=== PATIENT | female | born 1925 | race Caucasian/White ===

== ENCOUNTER → 2016-10-13 | Outpatient (CLI) | payer MEDICARE ==
[~2016-10-13] MED LIST: ACET1TAB25 PO; ASPI-557 PO; CALC600T12 PO; CHLO473M3 PO; CYAN10006 SQ; LORA0.5T86 PO; LOSA50TA52 PO; MAGN400C PO; ONDA4TAB4 PO; PANT40TA32 PO; RANI150T12 PO; SODI51CR6 MT
[2016-10-13 06:43] LABS: BASOPHILS % (AUTO) 0.6 % (0-2); EOSINOPHILS # (AUTO) 0.2 T/MM3 (0-0.5); EOSINOPHILS % (AUTO) 2.9 % (0-4); HCT - HEMATOCRIT 41.7 % (36-46); HGB - HEMOGLOBIN 13.4 GM/DL (12-16); IMMATURE GRANULOCYTE # (AUTO) 0.02 T/MM3 (0.00-0.03); IMMATURE GRANULOCYTE % (AUTO) 0.3 % (0.0-0.5); LYMPHOCYTES # (AUTO) 2.1 T/MM3 (1-4.8); LYMPHOCYTES % (AUTO) 30.5 % (23-45); MEAN CORPUSCULAR HGB 30.4 UUG (26-34); MEAN CORPUSCULAR HGB CONC(MCHC 32.1 GM/DL (31-37); MEAN CORPUSCULAR VOLUME 94.6 UM3 (80-100); MEAN PLATELET VOLUME 10.2 UM3 (9.4-12.4); MONOCYTES # (AUTO) 0.5 T/MM3 (0-0.8); NEUTROPHILS % (AUTO) 58.7 % (33-66); RED BLOOD COUNT 4.41 M/MM3 (4.00-5.20); WBC - WHITE BLOOD COUNT 6.8 T/MM3 (4.5-11.0)
[2016-10-13 06:52] LABS: ALBUMIN 3.3 G/DL (3.5-5.0); ALBUMIN/GLOBULIN RATIO 1.4 RATIO (1.1-2.2); ALKALINE PHOSPHATASE 55 U/L (38-126); ALT (SGPT) 40 U/L (9-52); ANION GAP 11 MEQ/L (5-15); AST (SGOT) 21 U/L (14-36); BUN/CREATININE RATIO 20 RATIO (6-26); CALCIUM 8.8 MG/DL (8.4-10.2); CHLORIDE 108 MEQ/L (98-107); CO2 - CARBON DIOXIDE 30 MEQ/L (22-30); CREATININE 0.7 MG/DL (0.7-1.2); GLOMERULAR FILTRATION RATE 79; GLUCOSE 95 MG/DL (65-110); POTASSIUM 3.7 MEQ/L (3.6-5); SODIUM 149 MEQ/L (134-144); TOTAL PROTEIN 5.6 G/DL (6.3-8.2)
== END ==
LOC: LABNH.PM 00:49
PROVIDERS: ATTEND Internal Medicine
DX: Z01.818 Encounter for other preprocedural examination (principal); D51.0 Vitamin B12 deficiency anemia due to intrinsic factor deficiency
CPT/HCPCS: 36415; 80053; 82607; 85025; P9604

== ENCOUNTER 2017-01-07 19:39 | Inpatient (IN) ==
--- NOTE | 2017-01-07 21:10 | Orthopedic Consult Note ---
Orthopedic Consultation HPI - Consultation Info Consult Date: 01/07/17 Consult Reason: fracture (Right subcapital femoral neck) - HPI Elements right hip Pain: throbbing, ache Onset: sudden Radiating: No Severity: mild, moderate Duration: 12-24 hours How Often Does Pain Occur: constant Previous Surgery: No Previous Injury: No Aggrevated by: standing, walking, getting out of a chair, twisting/pivoting X-ray Findings: sub-capital fracture Recommendation: other (Percutaneous screws. Will re-xray prior to surgery in the OR with possibility of endoprosthesis if fracture displaces in the interim) - History of Present Illness 89 yo female fell [facility]. Has been ambulating but complaining of right hip pain. Presented [place] [facility] [place]. Xrays show sub-capital femoral neck fracture on the right. Admitted to the hospitalist service with plan for surgery. Review of Systems - Constitutional Constitutional: Absent: chills, fatigue, fever(s) - EENT Eyes: Absent: change in vision Ears, nose, mouth, throat: Present: decreased hearing. Absent: headaches, lightheadedness - Cardiovascular Cardiovascular: Absent: chest pain, palpitations Vascular: Absent: pedal edema - Respiratory Respiratory: Absent: cough, dyspnea - Gastrointestinal Gastrointestinal: Absent: abdominal pain, change in bowel habits - Musculoskeletal Musculoskeletal: Present: as per HPI, abnormal gait, tenderness, joint pain. Absent: deformity - Integumentary/Breasts Integumentary: Absent: swelling, wounds - Neurological Neurological: Absent: frequent falls, numbness, tingling - Psychiatric Psychiatric: Absent: anxiety, depression - Endocrine Endocrine: Absent: palpitations - Hematologic/Lymphatic Hematologic/Lymphatic: Absent: easy bleeding, easy bruising [facility] Patient Stated Medical History Dementia Yes Transient Ischemic Attacks ( Yes TIA) Hearing Loss Yes Heart Murmur Yes Hypertension Yes Gastroesophageal Reflux Yes Disease Surgical History: T&A, TAHBSO, Bilateral Knee Surgery, Appendectomy Family History: Non-contributory - Social History Smoking status: Never smoker Substance use type: does not use Alcohol intake: never Housing: prison Medications Home Medications Medication Instructions Recorded Confirmed Type Pantoprazole Sodium 40 mg PO BID #0 08/16/01/07/17 History Cyanocobalamin (B-12) [Vit. B-12] 1,000 mcg SQ MONTHLY #0 09/25/15 01/07/17 History LORazepam [Ativan] 0.5 mg PO Q6H PRN #0 09/25/15 01/07/17 History Magnesium Oxide [Magnesium] 400 mg PO BID #0 09/25/15 01/07/17 History raNITIdine HCl [Zantac] 150 mg PO BID #0 09/25/15 01/07/17 History Aspirin [Aspir 81] 81 mg PO DAILY #0 01/01/16 01/07/17 History Calcium Carbonate [Calcium] 600 mg PO BID #0 01/01/16 01/07/17 History Chlorhexidine Gluconate [Periogard] 0.5 oz PO SS #0 01/01/16 01/07/17 History Sodium Fluoride [Denta 5000 Plus] 1 applic MT DAILY #0 01/01/16 01/07/17 History Atenolol [Tenormin] 25 mg PO BID 01/07/17 01/07/17 History Escitalopram Oxalate [Lexapro] 5 mg PO DAILY 01/07/17 01/07/17 History Lactase [Lactaid] 3,000 unit PO TID 01/07/17 01/07/17 History Losartan [Cozaar] 100 mg PO DAILY 01/07/17 01/07/17 History Sucralfate [Carafate] 1 gm PO HS 01/07/17 01/07/17 History Allergies Allergy/AdvReac Type Severity Reaction Status Date / Time No Known Allergies Allergy Unknown Verified 01/07/17 20:02 Orthopedic Exam Vital signs: Temperature 98.0 F 01/07/17 19:48 Pulse Rate 61 01/07/17 20:21 Respiratory Rate 18 01/07/17 20:21 Blood Pressure 168/87 H 01/07/17 20:21 Pulse Oximetry 91 01/07/17 20:21 Oxygen Delivery Method Room Air - Constitutional General Appearance: Present: alert, cooperative, looks stated age - Respiratory Exam Present: CTA bilaterally, non-labored - Cardiovascular Exam Present: Regular Rate/Rhythm, pedal pulses intact Capillary Refill: < 2-3 Seconds - Abdominal Exam Present: soft. Absent: tenderness, distended - Extremities Exam Present: pulses intact, normal capillary refill - Hip Exam right Hip Exam: Present: painful PROM, IR-limited, flexion-limited - Detailed Lower Extremity Exam Hip: Left normal inspection, Left full ROM, Right external rotation (mild), Right tenderness, Right decreased ROM, Right pain with external rotation, Right pain with internal rotation, Bilateral deformity (none), Bilateral shortening of the leg (normal leg lengths), Bilateral wound hip (negative) - Integumentary Exam Present: pink, warm, dry. Absent: lesions - Neurological Exam Present: intact to light touch, no deficits - Psychiatric Exam Present: alert, normal affect, attentive - Labs Result Diagrams: 01/07/17 21:11 01/07/17 21:11 - Diagnostic results Hip x-ray: image reviewed (Minimailly displaced right femoral neck fracture) Impression and Recommendation (1) Subcapital fracture of neck of right femur Current visit: Yes Qualifiers: Encounter type: initial encounter Fracture type: closed Qualified Code(s) : S72.011A - Unspecified intracapsular fracture of right femur, initial encounter for closed fracture Status: Acute Discussed the findings with the patient and daughter. She has been very stoic ambulating on her fracture and can't believe her hip is broken. Recommend placement of cannulated screws with the slight possibility of and endoprosthesis if the fracture has displaced significantly prior to surgery. Will evaluate with fluoroscopy in the OR. NPO until after surgery. The risks, benefits, alternatives, and potential complications were discussed including, but not limited to: bleeding, neurovascular inury, displacement of the fracture necessitating additional surgery (femoral head replacement), infection, risk of anesthesia, decreased mobility, and others. They wish to proceed. DVT prophylaxis mechanically until surgery. NWB. Bedrest. May have traction for pain if needed. Pain medication. Labs, CXR, UA, EKG pending. All questions were answered. Hospital Course Summary Disclaimer: The visit summary below is not to be considered part of the above Progress Note.
--- NOTE | 2017-01-07 21:13 | Emergency Department Report ---
Lower Extremity Injury HPI - General Chief Complaint: Extremity Injury, Lower Stated Complaint: Fall Source: patient, family Mode of arrival: ambulatory Limitations: altered mental status - History of Present Illness HPI Narrative: Patient is an 89-year-old female who resides at [facility]. She is brought into the ER tonight by her daughter following a fall this afternoon. Patient complains of some right hip pain however has been ambulatory since the fall. On exam, patient does demonstrate tenderness to her right hip but declines the need for pain medication. X-ray was done of bilateral hips and pelvis and does indicate an impacted femoral neck fracture. complaint: hip injury Onset (ago): hour(s) Injury: Right: hip Type of Injury: unknown (unwitnessed fall) Place: other (are seen home) Severity: mild Exacerbating factors: weight bearing, movement, palpation Context: fall Associated symptoms: ambulatory - Related Data Home Medications Medication Instructions Recorded Confirmed Pantoprazole Sodium 40 mg PO BID #0 08/16/13 01/07/17 Cyanocobalamin (B-12) [Vit. B-12] 1,000 mcg SQ MONTHLY #0 09/25/15 01/07/17 LORazepam [Ativan] 0.5 mg PO Q6H PRN #0 09/25/15 01/07/17 Magnesium Oxide [Magnesium] 400 mg PO BID #0 09/25/15 01/07/17 raNITIdine HCl [Zantac] 150 mg PO BID #0 09/25/15 01/07/17 Aspirin [Aspir 81] 81 mg PO DAILY #0 01/01/16 01/07/17 Calcium Carbonate [Calcium] 600 mg PO BID #0 01/01/16 01/07/17 Chlorhexidine Gluconate [Periogard] 0.5 oz PO SS #0 01/01/16 01/07/17 Sodium Fluoride [Denta 5000 Plus] 1 applic MT DAILY #0 01/01/16 01/07/17 Atenolol [Tenormin] 25 mg PO BID 01/07/17 01/07/17 Escitalopram Oxalate [Lexapro] 5 mg PO DAILY 01/07/17 01/07/17 Lactase [Lactaid] 3,000 unit PO TID 01/07/17 01/07/17 Losartan [Cozaar] 100 mg PO DAILY 01/07/17 01/07/17 Sucralfate [Carafate] 1 gm PO HS 01/07/17 01/07/17 Allergies Allergy/AdvReac Type Severity Reaction Status Date / Time No Known Allergies Allergy Unknown Verified 01/07/17 20:02 Review of Systems Constitutional: Reports: as per HPI. Denies: fever, chills, weakness ENT: Denies: ear pain, throat pain Cardiovascular: Denies: chest pain, palpitations, dyspnea on exertion Respiratory: Denies: cough, dyspnea, wheezes, hemoptysis Gastrointestinal: Denies: abdominal pain, nausea, vomiting, diarrhea Genitourinary: Denies: urgency, dysuria, frequency, hematuria, discharge Musculoskeletal: Reports: as per HPI, arthralgia. Denies: back pain, joint swelling Neurological: Reports: other (history of dementia). Denies: headache, weakness , numbness Hematological/Lymphatic: Denies: easy bleeding, easy bruising PFSH Patient Stated Medical History Dementia Yes Transient Ischemic Attacks ( Yes TIA) Hearing Loss Yes Heart Murmur Yes Hypertension Yes Gastroesophageal Reflux Yes Disease - Social History Smoking status: Never smoker Physical Exam - Limitations Limitations: language barrier, altered mental status - General General appearance: alert, in no apparent distress - Normal Exams: Head:: Normocephalic without trauma Eyes:: Pupils are PERRLA w/ EOMI, No scleral icterus, irritation, or foreign bodies noted ENMT:: No facial trauma, nasal exudates, pharyngeal erythema, or exudates are noted Neck:: Full range of motion, without adenopathy, JVD, bruits or thyromegaly Chest/Respirations:: Clear all coughlin, with good airflow, and symmetry bilaterally Cardiovascular:: Regular rate and rhythm, without murmur or gallop, Pulses 2+ all extremities, capillary refill, <2 seconds all extremities Abdomen:: Bowel sounds positive, soft, non-tender, non-distended, no hepatosplenomegaly, masses or bruits noted Musculoskeletal:: or deformity noted Integumentary:: No rashes, hives, or bruising noted, hair and nails, without abnormality Neurological:: Patient is alert, and oriented, cranial nerves, motor/sensory/ cerebellar, exams w/o gross deficits, to observation - Expanded Lower Extremity Exam Hip/Pelvis exam: Present: normal inspection, tenderness, other (patient has pain with palpation to right hip, no attempts to internally or externally rotate the hip). Absent: abrasion, laceration, deformity, erythema Upper leg exam: Present: normal inspection, tenderness. Absent: swelling Knee exam: Present: normal inspection, full ROM. Absent: tenderness, swelling Lower leg exam: Present: normal inspection, full ROM. Absent: tenderness, swelling Ankle exam: Present: normal inspection, full ROM. Absent: tenderness, swelling Course - Consultations Consultation #1: Dr. Bentley Time: 20:50 (accepts consult) Consultation #2: Hospitalist Time: 21:17 (contacted to admit patient ) Vital Signs Temperature 98.0 F 01/07/17 19:48 Pulse Rate 61 01/07/17 19:48 Respiratory Rate 18 01/07/17 19:48 Blood Pressure 178/92 H 01/07/17 19:48 Pulse Oximetry 90 01/07/17 19:48 Temperature 97.0 F 01/07/17 22:45 Pulse Rate 74 01/07/17 22:45 Respiratory Rate 20 01/07/17 22:55 Blood Pressure 151/91 H 01/07/17 22:55 Pulse Oximetry 93 01/07/17 22:55 Extremity Injury, Lower - MDM Narrative Medical decision making narrative: Patient has impacted femoral neck fracture. Will require admission/surgery. Dr Bentley will consult / hospitalist service to admit. Patient has dementia , limited historian. Patients daughter present and states agreement and understanding. - Lab Data Result diagrams: 01/07/17 21:11 01/07/17 21:11 Lab Results 01/07/17 01/07/17 01/07/17 Range/Units 21:11 21:11 21:12 WBC 10.3 (4.5-11.0) T/MM3 RBC 4.57 (4.00-5.20) M/MM3 Hgb 14.0 (12-16) GM/DL Hct 42.8 (36-46) % MCV 93.7 (80-100) UM3 MCH 30.6 (26-34) UUG MCHC 32.7 (31-37) GM/DL RDW Std Deviation 42.2 (36.9-50.2) FL Plt Count 232 (130-400) T/MM3 MPV 10.3 (9.4-12.4) UM3 Immature Gran % (Auto) 0.3 (0.0-0.5) % Neut % (Auto) 76.4 H (33-66) % Lymph % (Auto) 15.7 L (23-45) % [place] % (Auto) 5.0 (0-9.0) % Eos % (Auto) 2.3 (0-4) % Baso % (Auto) 0.3 (0-2) % Neut # 7.8 H (1.8-7.7) T/MM3 Lymph # 1.6 (1-4.8) T/MM3 [place] # 0.5 (0-0.8) T/MM3 Eos # 0.2 (0-0.5) T/MM3 Baso # 0.0 (0-0.2) T/MM3 Abs Immat Gran (auto) 0.03 (0.00-0.03) T/MM3 INR 0.94 L (0.99-1.21) Turbidity < 20 (0-20) Sodium 142 (134-144) MEQ/L Potassium 3.7 (3.6-5) MEQ/L Chloride 108 H (98-107) MEQ/L Carbon Dioxide 26 (22-30) MEQ/L Anion Gap 8 (5-15) MEQ/L BUN 12.0 (7-17) MG/DL Creatinine 0.7 (0.7-1.2) MG/DL GFR Calculation 79 BUN/Creatinine Ratio 17 (6-26) RATIO Glucose 108 (65-110) MG/DL Calculated Osmolality 274 (261-280) MOSM/KG Calcium 9.0 (8.4-10.2) MG/DL Total Bilirubin 0.70 (0.20-1.30) MG/DL Icterus Index < 2 (0-7) AST 29 (14-36) U/L ALT 39 (9-52) U/L Alkaline Phosphatase 75 (38-126) U/L Total Protein 6.4 (6.3-8.2) G/DL Albumin 4.0 (3.5-5.0) G/DL Globulin 2.4 (2.4-3.6) G/DL Albumin/Globulin Ratio 1.7 (1.1-2.2) RATIO Specimen Hemolysis 28 H (0-25) Ur Collection Type Urine Color (YELLOW) Urine Clarity Urine pH (5.0-8.0) Ur Specific [place] (1.015-1.025) Urine Protein (NEGATIVE) Urine Glucose (UA) (NEGATIVE) Urine Ketones (NEGATIVE) Urine Occult Blood (NEGATIVE) Urine Nitrate (NEGATIVE) Urine Bilirubin (NEGATIVE) Urine Urobilinogen (NORMAL) EU/DL Ur Leukocyte Esterase (NEGATIVE) Urinalysis Comment 01/07/17 Range/Units 22:07 WBC (4.5-11.0) T/MM3 RBC (4.00-5.20) M/MM3 Hgb (12-16) GM/DL Hct (36-46) % MCV (80-100) UM3 MCH (26-34) UUG MCHC (31-37) GM/DL RDW Std Deviation (36.9-50.2) FL Plt Count (130-400) T/MM3 MPV (9.4-12.4) UM3 Immature Gran % (Auto) (0.0-0.5) % Neut % (Auto) (33-66) % Lymph % (Auto) (23-45) % [place] % (Auto) (0-9.0) % Eos % (Auto) (0-4) % Baso % (Auto) (0-2) % Neut # (1.8-7.7) T/MM3 Lymph # (1-4.8) T/MM3 [place] # (0-0.8) T/MM3 Eos # (0-0.5) T/MM3 Baso # (0-0.2) T/MM3 Abs Immat Gran (auto) (0.00-0.03) T/MM3 INR (0.99-1.21) Turbidity (0-20) Sodium (134-144) MEQ/L Potassium (3.6-5) MEQ/L Chloride (98-107) MEQ/L Carbon Dioxide (22-30) MEQ/L Anion Gap (5-15) MEQ/L BUN (7-17) MG/DL Creatinine (0.7-1.2) MG/DL GFR Calculation BUN/Creatinine Ratio (6-26) RATIO Glucose (65-110) MG/DL Calculated Osmolality (261-280) MOSM/KG Calcium (8.4-10.2) MG/DL Total Bilirubin (0.20-1.30) MG/DL Icterus Index (0-7) AST (14-36) U/L ALT (9-52) U/L Alkaline Phosphatase (38-126) U/L Total Protein (6.3-8.2) G/DL Albumin (3.5-5.0) G/DL Globulin (2.4-3.6) G/DL Albumin/Globulin Ratio (1.1-2.2) RATIO Specimen Hemolysis (0-25) Ur Collection Type Urine, beltran Urine Color Yellow (YELLOW) Urine Clarity Clear Urine pH 7.0 (5.0-8.0) Ur Specific [place] 1.010 L (1.015-1.025) Urine Protein Negative (NEGATIVE) Urine Glucose (UA) Negative (NEGATIVE) Urine Ketones Negative (NEGATIVE) Urine Occult Blood Negative (NEGATIVE) Urine Nitrate Negative (NEGATIVE) Urine Bilirubin Negative (NEGATIVE) Urine Urobilinogen 0.2 (NORMAL) EU/DL Ur Leukocyte Esterase Negative (NEGATIVE) Urinalysis Comment Microscopic not ind. Disposition Clinical Impression: Femoral neck fracture Disposition: To [facility] [place] Acute Care Condition: Stable - Seen By: midlevel
[2017-01-07] MEDS: SALINE FLUSH 10ml SYRINGE IVF PRN ×2 (21:14→21:34)
[2017-01-07] MEDS ORDERED: MORPHINE SULFATE 2 MG SYRINGE IVP ONE (21:22)
[2017-01-07] MEDS ORDERED: ONDANSETRON 4 MG/2 ML INJECTION IVP ONE (21:23)
[2017-01-07] MEDS ORDERED: MORPHINE SULFATE 10 MG/ML VIAL IVP PRN (21:38)
[2017-01-07] MEDS ORDERED: ONDANSETRON 4 MG/2 ML INJECTION IVP PRN ×3 (21:38→23:51)
[2017-01-07] MEDS ORDERED: NS 1,000 ML IV SCH ×2 (21:45→23:44)
[2017-01-07] MEDS ORDERED: ACETAMINOPHEN 325 MG TABLET PO PRN (23:44)
[2017-01-07] MEDS ORDERED: SENNA + DOCUSATE TABLET PO PRN (23:44)
[2017-01-07] MEDS ORDERED: ALPRAZolam 0.25 MG TABLET PO PRN (23:44)
[2017-01-07] MEDS: HYDROCODONE/APAP 7.5 MG/325 MG TABLET PO PRN (23:56)
[2017-01-07] MEDS: LORazepam 0.5 MG TABLET PO PRN (23:56)
[2017-01-08 00:16] VITALS: BMI 23.4
--- NOTE | 2017-01-08 00:16 | History & Physical Report ---
<Shai Blake I - Last Filed: 01/08/17 00:16> History of Present Illness Date: 01/08/17 Chief complaint: R hip moore/fracture HPI: This is a pleasantly demented 89-year-old female patient who was [facility] this afternoon after she sustained an unwitnessed but presumed mechanical fall, fracturing her right hip. There was no reported syncope or prodrome. No reported chest pain. She apparently was ambulating back from the bathroom when she fell. She had had no recent illnesses. 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 She is admitted for further evaluation and comanagement with orthopedic surgery, with plans for surgical repair tomorrow morning. Review of Systems All systems: reviewed and no additional remarkable complaints except as stated - EENMT Eyes: Absent: change in vision - Cardiovascular Cardiovascular: Absent: chest pain, palpitations Vascular: Absent: pedal edema - Respiratory Respiratory: Absent: cough, dyspnea - Gastrointestinal Gastrointestinal: Absent: abdominal pain, change in bowel habits - Neurological Neurological: Present: memory loss ( Chronic short-term as above) - Hematologic/Lymphatic Hematologic/Lymphatic: Absent: easy bleeding, easy bruising PFSH Patient Stated Medical History Dementia Yes Transient Ischemic Attacks ( Yes TIA) Hearing Loss Yes Heart Murmur Yes Hypertension Yes Gastroesophageal Reflux Yes Disease Surgical History: T&A, TAHBSO, Bilateral Knee Surgery, Appendectomy - Social History Smoking status: Never smoker Current occupational exposures/hazards: No Current residence: Prison (she is in the penitentiary principally due to dementia) Medications Home Medications Medication Instructions Recorded Confirmed Type Pantoprazole Sodium 40 mg PO BID #0 08/16/13 01/07/17 History Cyanocobalamin (B-12) [Vit. B-12] 1,000 mcg SQ MONTHLY #0 09/25/15 01/07/17 History LORazepam [Ativan] 0.5 mg PO Q6H PRN #0 09/25/15 01/07/17 History Magnesium Oxide [Magnesium] 400 mg PO BID #0 09/25/15 01/07/17 History raNITIdine HCl [Zantac] 150 mg PO BID #0 09/25/15 01/07/17 History Aspirin [Aspir 81] 81 mg PO DAILY #0 01/01/16 01/07/17 History Calcium Carbonate [Calcium] 600 mg PO BID #0 01/01/16 01/07/17 History Chlorhexidine Gluconate [Periogard] 0.5 oz PO SS #0 01/01/16 01/07/17 History Sodium Fluoride [Denta 5000 Plus] 1 applic MT DAILY #0 01/01/16 01/07/17 History Atenolol [Tenormin] 25 mg PO BID 01/07/17 01/07/17 History Escitalopram Oxalate [Lexapro] 5 mg PO DAILY 01/07/17 01/07/17 History Lactase [Lactaid] 3,000 unit PO TID 01/07/17 01/07/17 History Losartan [Cozaar] 100 mg PO DAILY 01/07/17 01/07/17 History Sucralfate [Carafate] 1 gm PO HS 01/07/17 01/07/17 History Allergies Allergy/AdvReac Type Severity Reaction Status Date / Time No Known Allergies Allergy Unknown Verified 01/07/17 20:02 Exam Vital Signs: Temperature 98.0 F 01/07/17 19:48 Pulse Rate 61 01/07/17 20:21 Respiratory Rate 20 01/07/17 22:55 Blood Pressure 151/91 H 01/07/17 22:55 Pulse Oximetry 93 01/07/17 22:55 Oxygen Delivery Method Nasal Cannula Oxygen Flow Rate 1 Height: 5 ft 1 in Weight: 56.3 kg - Constitutional Present: mild distress, well nourished, well developed, agitated ( recently received pain medication, she is expressing some delirium) - Routine HEENT Exam Head: Present: normocephalic, atraumatic Eye: Present: EOMI, PERRL ENT: Present: mucous membranes moist - Routine Neck Exam Present: supple, full ROM - Routine Chest/Breast/Axilla Exam Chest wall: Absent: tenderness - Routine Respiratory Exam Present: CTA bilaterally. Absent: accessory muscle use, dyspnea - Routine Cardiovascular Exam Present: RRR, no murmur ( examination performed using telemedicine equipment with the assistance of the bedside nurse) - Routine Abdominal Exam Present: soft, normoactive bowel sounds, non distended, non tender - Routine Extremities Exam Present: no edema, normal capillary refill - Routine Neurological Exam Present: alert, moving all extremities. Absent: oriented X3, sensory deficit, motor deficit - Routine Psychiatric Exam Present: cooperative, agitated ( she is slightly agitated, and wanting to climb out of bed, but is able to be oriented by the bedside nurse and easily redirected) Results - Labs CBC & Chem 7: 01/07/17 21:11 01/07/17 21:11 - Impressions X-ray of the right hip revealed an impacted femoral neck fracture by report Assessment and Plan (1) Subcapital fracture of neck of right femur Status: Acute 01/08/17 00:22 she is nothing by mouth at this time. Dr. Bentley is aware of her situation , and plans operative repair in the morning. I see no medical contraindication to proceeding at his earliest convenience. We will be happy to follow along during her hospital course. Her home medications for essential hypertension, dyslipidemia, gastroesophageal reflux disease, and cerebrovascular disease are ordered to continue. Pain management, and DVT prophylaxis, will be per orthopedics recommendations unless otherwise requested. DVT Prophylaxis: SCD's, YASIR Hose, other ( Postop DVT prophylaxis per orthopedics unless otherwise requested) Resuscitation Status: Do Not Resuscitate (per the patient's daughter at the bedside) Hospital Course Summary Disclaimer: The visit summary below is not to be considered part of the above Progress Note. <Myrna Retana - Last Filed: 01/08/17 10:10> History of Present Illness Date: 01/08/17 [facility] Patient Stated Medical History Dementia Yes Transient Ischemic Attacks ( Yes TIA) Cataracts Yes Hearing Loss Yes Heart Murmur Yes Hypertension Yes Gastroesophageal Reflux Yes Disease Hx Incontinence Yes Anemia Yes Shingles Yes: possibly -several years ago Depression Yes Exam Vital Signs: Temperature 97.3 F 01/08/17 07:45 Pulse Rate 79 01/08/17 08:18 Respiratory Rate 20 01/08/17 08:56 Blood Pressure 147/82 H 01/08/17 07:45 Pulse Oximetry 99 01/08/17 08:56 Oxygen Delivery Method Room Air Oxygen Flow Rate 2 Height: 1.55 m Weight: 57 kg Results - Labs CBC & Chem 7: 01/08/17 04:38 01/08/17 04:38 Assessment and Plan (1) Subcapital fracture of neck of right femur Current visit: Yes Status: Acute Assessment and Plan: Dr. Blake's note reviewed. Mrs. Arzola interviewed and examined. Patient's daughter/DPOA Mikayla Navarro provided majority of the history. CC: Hip fracture/pain HPI: Mrs. Arzola is an 89-year-old female who resides at [facility]. She was reported to have an unwitnessed fall at the facility yesterday. She was able to ambulate after the fall but complained of pain and subsequently presented to the emergency room for evaluation. Initial evaluation demonstrated tenderness over the right hip and x-rays revealed femoral neck fracture. The patient is unable to provide any further history due to dementia. Her daughter is unaware of any recent illness and reports that her mother has no residual physical deficits from a stroke 14 years ago and has not complained of chest pain nor does she have a history of coronary disease. Surgical repair of the hip is anticipated this morning. Currently the patient denies pain. 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 Daughter believes patient has had both knees replaced and she is undergone bilateral cataract surgery. Family history is largely unknown as family remains in [place] but her daughter believes one sister had congenital heart disease and one sister had breast cancer. Patient has no history of tobacco, alcohol or illicit drug use. She has a DO NOT RESUSCITATE order and her daughter, Mikayla Navarro, is her DPOA ROS: 10 point review is unobtainable due to the patient's dementia/sedation EXAM: General-NAD, moving right leg slightly without apparent discomfort, minimal speech but occasionally responds to a question, slightly hard of hearing. 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 Skin-without rash or ulcerations on exposed skin surfaces Neuro-sensation intact 4 extremities, no drift upper extremities, hand inspector +4 bilaterally, dorsiflexion/plantarflexion intact, spontaneously moving both legs more proximally but power not assessed Psych-confused, pleasant DATA: X-rays of pelvis and bilateral hips reviewed-impacted right femoral neck fracture present Chest x-ray reviewed by myself-NAD EKG reviewed by myself-sinus rhythm, minor LAD, poor R-wave progression, possible old inferior VT, no acute ST-T wave changes Laboratory data unremarkable other than minor drop in potassium overnight with potassium 3.3 this morning. A/P: Right femoral neck fracture Hypokalemia Dementia Hypertension GERD/history peptic ulcer disease Remote history CVA Dr. Bentley consulted for orthopedic recommendations/surgical intervention- stabilization of right femoral neck fracture. Anticipate surgery later today. DVT prophylaxis initiated with SCDs overnight, chemical prophylaxis postoperatively. PT/OT consults postoperatively. Postoperative course discussed with patient's daughter. Incentive spirometry ordered. Potassium replacement initiated IV. Hemodynamically stable, blood pressure medications resumed per home regimen. Bowel regimen ordered for anticipated postop constipation. Patient on triple therapy for peptic disease-will discuss further with daughter to determine if can de-escalate. Medically stable for surgery as planned. X-ray/EKG reviewed by myself, old records reviewed, supple mental history provided by nursing and patient's daughter, laboratory data reviewed. High-risk medications in use, surgery today. Hospital Course Summary Disclaimer: The visit summary below is not to be considered part of the above Progress Note. Hospital Course: 01/08/17 10:09 Admitted with right femoral neck fracture after fall at [facility]. Dr. Bentley consulted, surgery planned for today. Mild hypokalemia-replaced IV.
[2017-01-08] MEDS: NS 1,000 ML IV SCH ×3 (01:06→13:42)
[2017-01-08] MEDS: LACTAID FAST TABLET PO SCH ×3 (07:25→17:53)
--- NOTE | 2017-01-08 07:59 | XRay Report ---
Indication: PRE OP PROCEDURE: XR chest 1V: Encounter: Initial Comparison: November 16, 2008 FINDINGS: The lungs are clear. There is no abnormal airspace opacity, pleural effusion or pneumothorax identified. Eventration of the right hemidiaphragm. The heart size, pulmonary vasculature and mediastinum are within normal limits. No significant skeletal abnormality is seen. IMPRESSION: No acute cardiopulmonary abnormality. .
--- NOTE | 2017-01-08 08:03 | XRay Report ---
Indication: fall pain to hips; dementia PROCEDURE: XR pelvis w/ 2 view BI hip: Encounter: Initial Comparison: None Findings: Slightly impacted fracture of the subcapital right femoral neck. No additional acute fracture or dislocation seen. Degenerative change in the lower lumbar spine. Bony demineralization limiting detection of nondisplaced fractures. Impression: Closed posttraumatic right femoral neck fracture. .
[2017-01-08] MEDS: MAGNESIUM OXIDE 400 MG TABLET PO SCH ×2 (08:12→22:20)
[2017-01-08] MEDS: [UNRECOGNIZED DRUG - OTHER] PO SCH (08:12)
[2017-01-08] MEDS: ASPIRIN *EC* 325 MG TABLET PO SCH ×2 (08:12→22:18)
[2017-01-08] MEDS: SODIUM FLUORIDE PO SCH (08:12)
[2017-01-08] MEDS: CALCIUM CARBONATE 600 MG TABLET PO SCH ×2 (08:12→22:20)
[2017-01-08] MEDS: RANITIDINE 150 MG TABLET PO SCH ×2 (08:13→22:18)
[2017-01-08] MEDS: ESCITALOPRAM 10 MG TABLET PO SCH (08:42)
[2017-01-08] MEDS: ATENOLOL 25 MG TABLET PO SCH ×2 (08:43→22:16)
[2017-01-08] MEDS: LOSARTAN 100 MG TABLET PO SCH (08:43)
[2017-01-08] MEDS ORDERED: ASPIRIN *EC* 81 MG TABLET PO SCH (09:00)
[2017-01-08] MEDS ORDERED: PANTOPRAZOLE 40 MG TABLET PO SCH (09:00)
[2017-01-08] MEDS ORDERED: CEFAZOLIN 1 G INJECTION IVP ONE ×2 (10:45)
--- NOTE | 2017-01-08 11:00 | Anesthesia Preoperative Report ---
Anesthesia Preoperative Record - Date and Time Date: 01/08/17 Preoperative Diagnosis: Hip Fracture Proposed Procedure: Hip TFN NPO Since Date: 01/08/17 NPO Since Time: 08:30 Allergies/Adverse Reactions: Allergies Allergy/AdvReac Type Severity Reaction Status Date / Time No Known Allergies Allergy Unknown Verified 01/07/17 20:02 - Vital Signs Vital Signs: Temperature 98.0 F 01/08/17 10:30 Pulse Rate 74 01/08/17 10:30 Respiratory Rate 18 01/08/17 10:30 Blood Pressure 221/103 H 01/08/17 10:50 Pulse Oximetry 89 L 01/08/17 10:30 Oxygen Delivery Method Room Air Oxygen Flow Rate 2 Height and Weight: Height 1.55 m Weight 57 kg Body Mass Index 23.4 - Medications Inpatient Medications: Current Medications Acetaminophen (Tylenol) 650 mg PO Q4H PRN PRN Reason: Pain Acetaminophen/Hydrocodone Bitart ([place] 7.5/325) 1 - 2 tab PO Q6H PRN PRN Reason: Pain Last Admin: 01/07/17 23:56 Dose: 2 tab Alprazolam (Xanax) 0.25 mg PO Q8H PRN PRN Reason: Anxiety Aspirin (Ecotrin) 325 mg PO BID [facility] Last Admin: 01/08/17 08:12 Dose: Not Given Atenolol (Tenormin) 25 mg PO BID [facility] Last Admin: 01/08/17 08:43 Dose: 25 mg Calcium Carbonate (Caltrate) 600 mg PO BID [facility] Last Admin: 01/08/17 08:12 Dose: Not Given Escitalopram Oxalate (Lexapro) 5 mg PO DAILY [facility] Last Admin: 01/08/17 08:42 Dose: 5 mg Sodium Chloride (Normal Saline) 1,000 mls @ 75 mls/hr IV .[id number] [facility] Last Infusion: 01/08/17 04:57 Dose: 75 mls/hr Lidocaine HCl 10 mg/ Potassium Chloride 10 meq/ Sodium Chloride 100 mls @ 100 mls/hr IV .Q1H [facility] Stop: 01/08/17 11:44 Lactase (Lactaid Fast Act) 1 tab PO WM [facility] Last Admin: 01/08/17 07:25 Dose: Not Given Lorazepam (Ativan) 0.5 mg PO Q6H PRN PRN Reason: ANX Last Admin: 01/07/17 23:56 Dose: 0.5 mg Losartan Potassium (Cozaar) 100 mg PO DAILY [facility] Last Admin: 01/08/17 08:43 Dose: 100 mg Magnesium Hydroxide (Mom) 30 ml PO DAILY PRN PRN Reason: Constipation Magnesium Oxide (Magox) 400 mg PO BID [facility] Last Admin: 01/08/17 08:12 Dose: Not Given Morphine Sulfate (Morphine Sulfate Inj) 1 - 5 mg IVP Q1H PRN PRN Reason: Pain (Sodium Fluoride [ Denta 5000 Plus] 1 Applic) 1 applic PO DAILY [facility] Last Admin: 01/08/17 08:12 Dose: Not Given [Periogard] 0.5 Oz) 0.5 oz PO DAILY [facility] Last Admin: 01/08/17 08:12 Dose: Not Given Ondansetron HCl (Zofran) 4 mg IVP Q6H PRN PRN Reason: Nausea &/or vomiting Pantoprazole Sodium (Protonix Tab) 40 mg PO ACB [facility] Ranitidine HCl (Zantac) 150 mg PO BID [facility] Last Admin: 01/08/17 08:13 Dose: Not Given Senna/Docusate Sodium (Senna Plus Tablet) 2 tab PO BID [facility] Sucralfate (Carafate) 1 gm PO [facility] Home Medications: Home Medications Medication Instructions Recorded Confirmed Type Pantoprazole Sodium 40 mg PO BID #0 08/16/13 01/07/17 History Cyanocobalamin (B-12) [Vit. B-12] 1,000 mcg SQ MONTHLY #0 09/25/15 01/07/17 History LORazepam [Ativan] 0.5 mg PO Q6H PRN #0 09/25/15 01/07/17 History Magnesium Oxide [Magnesium] 400 mg PO BID #0 09/25/15 01/07/17 History raNITIdine HCl [Zantac] 150 mg PO BID #0 09/25/15 01/07/17 History Aspirin [Aspir 81] 81 mg PO DAILY #0 01/01/16 01/07/17 History Calcium Carbonate [Calcium] 600 mg PO BID #0 01/01/16 01/07/17 History Chlorhexidine Gluconate [Periogard] 0.5 oz PO SS #0 01/01/16 01/07/17 History Sodium Fluoride [Denta 5000 Plus] 1 applic MT DAILY #0 01/01/16 01/07/17 History Atenolol [Tenormin] 25 mg PO BID 01/07/17 01/07/17 History Escitalopram Oxalate [Lexapro] 5 mg PO DAILY 01/07/17 01/07/17 History Lactase [Lactaid] 3,000 unit PO TID 01/07/17 01/07/17 History Losartan [Cozaar] 100 mg PO DAILY 01/07/17 01/07/17 History Sucralfate [Carafate] 1 gm PO HS 01/07/17 01/07/17 History - Medical History Cardiovascular: Reports: Congestive Heart Failure, Heart Murmur, Hypertension Gastrointestional: Reports: Gastroesophageal Reflux Disease Neuro/Musculoskeletal: Reports: Other - Surgical History Musculoskeletal Surgery/Tx: Reports: Total Knee Replacement Reproductive Surgery/Treatment: Reports: Hysterectomy - Social History Smoking Status: Never smoker Hx Chewing Tobacco Use: No Second Hand Exposure: No Substance Use Type: does not use Alcohol Intake Frequency: does not drink - Pertinent Findings Laboratory: CBC and BMP 01/08/17 04:38 01/08/17 04:38 BMP 01/08/17 04:38 Sodium 139 Potassium 3.3 L Chloride 104 Carbon Dioxide 28 BUN 10.0 Creatinine 0.6 L Glucose 118 H Calcium 8.5 EKG Rhythm: Normal Sinus Rhythm - Physical Exam Respiratory Exam: Present: lungs clear Cardiovascular Exam: Present: regular rate and rhythm, systolic murmur - Airway Assessment Mallampati Score: III TMD: 3 Fingerbreadths Neck Extension: fair Teeth: chipped teeth/crowns Overall Assessment: may be difficult mask vent, may be difficult intubation - ASA ASA Score: 3 - Plan Anesthesia: General Inhalation Gases - Discussion Discussion: Discussed risks/options/alternatives of anesthesia and questions answered. Patient consents. Nursing pain assessment noted. Present for Discussion: family member Attestation Statement: Prior to the delivery of any anesthetic medication, I examined the patient, developed the plan, obtained the patient's consent and discussed the risk and benefits of the procedure with the patient/guardian. - Additional Information Seen by Anesthesia: Yes
[2017-01-08] MEDS: LIDOCAINE 1% 2ml INJ 10 MG, POTASSIUM CHLORIDE INJ 10 MEQ in NS 100 ML IV SCH ×3 (11:05→13:23)
[2017-01-08] MEDS ORDERED: FentaNYL 100 MCG/2 ML INJECTION ONE (11:17)
[2017-01-08] MEDS ORDERED: ROCURONIUM 50 MG/5 ML INJECTION IVP ONE (11:27)
[2017-01-08] MEDS ORDERED: BUPIVACAINE 0.25% (2.5mg/ml) PF 30ml INJECTION ID ONE (11:50)
[2017-01-08] MEDS ORDERED: BUPIVACAINE 0.25% (2.5mg/ml) PF 30ml INJECTION ONE (11:52)
[2017-01-08] MEDS ORDERED: HYDRALAZINE 20 MG/ML INJECTION ONE (12:01)
[2017-01-08] MEDS ORDERED: SUGAMMADEX 200mg/2ml INJECTION IVP ONE (12:27)
--- NOTE | 2017-01-08 12:53 | Post Procedure Note ---
Date of Procedure: 01/08/17 Orthopedic Surgeon: Sheree Orthopedic Assisting Surgeon: Liu Meza Anesthesia: General Inhalation Gases Procedure: Procedures Operation Date: 01/08/17 11:30 Actual Procedures p Open Red Int Fix Hip W/Cannulated Screws(Right) - Giovany Bentley MD Condition: Stable Disposition: PACU
[2017-01-08] MEDS: MORPHINE SULFATE 4 MG SYRINGE IVP PRN (13:40)
--- NOTE | 2017-01-08 14:34 | Anesthesia Postoperative Note ---
- Date and Time Date: 01/08/17 Time: 14:33 - Status Patient Participated in Evaluation: Patient Participated in Person Vital Signs: Temperature 97.6 F 01/08/17 13:12 Pulse Rate 83 01/08/17 14:10 Respiratory Rate 01/08/17 13:10 Blood Pressure 180/84 H 01/08/17 14:10 Pulse Oximetry 94 01/08/17 14:10 Oxygen Delivery Method Nasal Cannula Oxygen Flow Rate 2 Respiratory Function: Airway Patent Cardiovascular Function: Regular Pulse EKG Rhythm: Normal Sinus Rhythm Mental Status: Alert and Oriented (return to preop LOC) Pain Intensity: 0 Hydration: IV Infusing Complications During Recover: None Apparent - Follow-Up Instructions Instructions: Per Surgeon
--- NOTE | 2017-01-08 14:58 | Remote Fluorsocopy Report ---
Indication: RT HIP CANNULATED SCREWS PROCEDURE: RF hip RT 2 view: Encounter: Initial Comparison: Pelvis radiographs from yesterday Findings: Four fluoroscopic spot images are submitted for interpretation. Images show internal fixation of the right femoral neck fracture with placement of three partially threaded cannulated screws across the femoral head and neck. Stable alignment. Impression: Fluoroscopy as above. Fluoroscopy time is 175.4 seconds. Fluoroscopy dose is 2910 mRad. .
--- NOTE | 2017-01-08 16:11 | Operative Note ---
DATE OF SURGERY 01/07/2017 PREOPERATIVE DIAGNOSIS Closed right subcapital femoral fracture, mild valgus impaction. POSTOPERATIVE DIAGNOSIS Closed right subcapital femoral fracture, mild valgus impaction. PROCEDURE Right subcapital femoral neck fracture, closed reduction and placement of cannulated screws. SURGEON Giovany Bentley MD TAIL EDGER Liu Meza PA-C ANESTHESIA General. FLUIDS Please refer to Anesthesia chart. EBL Minimal. COMPLICATIONS None. CONDITION Stable in recovery room. DESCRIPTION OF PROCEDURE The patient was identified in the preoperative holding area. The operative extremity was identified and appropriately marked. Risks, benefits, alternatives and potential complications were discussed and informed consent was obtained. The patient was taken to the operating theatre and placed supine on the fracture table. When she was moved to the fracture table appropriate cardiorespiratory monitors were applied and general anesthesia was induced. Fluoroscopy was brought in to confirm position of the fracture. It was noted to remain in slight valgus alignment. Gentle reduction was performed and we were able to obtain slightly better reduction by maintaining slight lateral traction on the proximal femur. The legs were placed in well-padded traction boots and positioned maintained. Repeat fluoroscopy again showed good position. Right lower extremity was then sterilely prepped and draped in the usual fashion. Surgical time-out was performed, confirmed with myself, the maintainer operator and circulating nurse. Preoperative antibiotics were given. Fluoroscopy was brought in and surgical landmarks were delineated on the skin as well as the angle of approach for this fracture. A 3-cm incision was created laterally just above the level of the lesser trochanter. First, a guidewire was advanced inferiorly along the inferior calcar region of the femoral neck, placed in the subchondral region of the head. This position was confirmed in the AP and lateral planes. The Synthes Ang Gun type guide was then utilized to place two more proximal anterior and posterior screws. Guide pins were then used to measure screw depth. The lateral cortex was drilled with the cannulated drill. The most inferior screw was then placed with a washer along the calcar region , position confirmed in the AP and lateral planes. Short threads were used which just barely passed the fracture line. This was not tightened all the way. The two additional screws were then placed and advanced. It was felt that the most posterior screw was slightly long, we were noticing prior to full feeding, so this was backed out and exchanged for a 5-mm shorter screw. This screw fit much better without penetration of the subchondral bone on the lateral view. Screws were then sequentially tightened with a hand line haul truck driver. Repeat final x-rays showed good position of the screws. Dynamic fluoroscopy was used to visualize the fracture, noting good stability with gentle range of motion of the hip. The guide pins had been removed. The wound was copiously irrigated. A standard layered closure was performed. Sterile dressings were applied. The patient was removed from traction and placed back into her hospital bed. She was awakened from anesthesia and taken to the recovery room in stable and satisfactory condition. JUAN M
[2017-01-08] MEDS: CEFAZOLIN 1 G in NS 100 ML IV SCH (17:03)
[2017-01-08] MEDS: HYDROCODONE/APAP 7.5 MG/325 MG TABLET PO PRN (22:15)
[2017-01-08] MEDS: LORazepam 0.5 MG TABLET PO PRN (22:15)
[2017-01-08] MEDS: SENNA + DOCUSATE TABLET PO SCH (22:18)
[2017-01-08] MEDS: SUCRALFATE 1 GM TABLET PO SCH (22:20)
[2017-01-09] MEDS: CEFAZOLIN 1 G in NS 100 ML IV SCH (01:05)
[2017-01-09] MEDS: NS 1,000 ML IV SCH (05:55)
[2017-01-09] MEDS: PANTOPRAZOLE 40 MG TABLET PO SCH (06:00)
[2017-01-09] MEDS: HYDROCODONE/APAP 7.5 MG/325 MG TABLET PO PRN ×2 (06:07→08:32)
[2017-01-09] MEDS: LORazepam 0.5 MG TABLET PO PRN ×2 (07:35→15:44)
[2017-01-09] MEDS: LACTAID FAST TABLET PO SCH ×3 (08:53→18:15)
[2017-01-09] MEDS: ESCITALOPRAM 10 MG TABLET PO SCH (09:05)
[2017-01-09] MEDS: RANITIDINE 150 MG TABLET PO SCH ×2 (09:05→20:56)
[2017-01-09] MEDS: SENNA + DOCUSATE TABLET PO SCH ×2 (09:05→20:55)
[2017-01-09] MEDS: ASPIRIN *EC* 325 MG TABLET PO SCH (09:05)
[2017-01-09] MEDS: CALCIUM CARBONATE 600 MG TABLET PO SCH ×2 (09:06→20:55)
[2017-01-09] MEDS: ATENOLOL 25 MG TABLET PO SCH ×2 (09:06→20:56)
[2017-01-09] MEDS: MAGNESIUM OXIDE 400 MG TABLET PO SCH (09:06)
[2017-01-09] MEDS: LOSARTAN 100 MG TABLET PO SCH (09:06)
[2017-01-09] MEDS: [UNRECOGNIZED DRUG - OTHER] PO SCH (09:22)
[2017-01-09] MEDS: SODIUM FLUORIDE PO SCH (09:23)
[2017-01-09] MEDS: LIDOCAINE 1% 2ml INJ 10 MG, POTASSIUM CHLORIDE INJ 10 MEQ in NS 100 ML IV SCH ×4 (10:16→13:32)
--- NOTE | 2017-01-09 14:42 | Orthopedic Progress Note ---
Date: Subjective/Severity of Illness: Liza is pleasantly confused. She is sleeping comfortably as I enter the room. She awakens easily. No complaints. Orthopedic Objective PO Vital signs: Temperature 96.1 F L 01/09/17 11:15 Pulse Rate 63 01/09/17 11:15 Respiratory Rate 16 01/09/17 11:15 Blood Pressure 121/68 01/09/17 11:15 Pulse Oximetry 94 01/09/17 11:28 Oxygen Delivery Method Nasal Cannula Oxygen Flow Rate 2 Height and Weight: Height 5 ft 1 in Weight 125 lb 3.561 oz Body Mass Index 23.4 - Constitutional General Appearance: Present: alert, cooperative, looks stated age - Respiratory Exam Present: non-labored - Cardiovascular Exam Present: Regular Rate/Rhythm, pedal pulses intact - Abdominal Exam Present: soft. Absent: tenderness, distended - Extremities Exam Extremities: Present: pulses intact - Integumentary Exam Present: pink, warm, dry. Absent: lesions - Neurological Exam Present: intact to light touch, no deficits - Psychiatric Exam Present: alert, normal affect, attentive - Labs Result Diagrams: 01/09/17 04:14 01/09/17 04:14 Abnormal lab results 01/09/17 01/09/17 Range/Units 04:14 04:14 Neut % (Auto) 81.0 H (33-66) % Lymph % (Auto) 11.3 L (23-45) % Abs Immat Gran (auto) 0.04 H (0.00-0.03) T/MM3 Potassium 3.3 L (3.6-5) MEQ/L Chloride 110 H (98-107) MEQ/L Creatinine 0.6 L (0.7-1.2) MG/DL Calcium 8.2 L (8.4-10.2) MG/DL Magnesium 2.5 H (1.6-2.3) MG/DL H & H 01/08/17 01/09/17 Range/Units 04:38 04:14 Hgb 13.5 12.1 (12-16) GM/DL Hct 41.8 37.7 (36-46) % Orthopedic Assessment and Plan (1) Subcapital fracture of neck of right femur Status: Acute Qualifiers: Encounter type: initial encounter Fracture type: closed Qualified Code(s) : S72.011A - Unspecified intracapsular fracture of right femur, initial encounter for closed fracture Assessment and Plan: S/P cannulated screw fixation by Dr. Bentley on 01/08/17 DVT prevention 50% weight bearing with walker on right leg case management for discharge planning. Hospital Course Summary Disclaimer: The visit summary below is not to be considered part of the above Progress Note. Hospital Course: 01/08/17 10:09 Admitted with right femoral neck fracture after fall at [facility]. Dr. Bentley consulted, surgery planned for today. Mild hypokalemia-replaced IV.
--- NOTE | 2017-01-09 15:17 | Progress Note ---
Subjective: Mrs. Arzola was up in a chair when seen. She was able to pivot transfer with assistance. Patient reports some hip discomfort but denied nausea. Nursing reports that urine output was borderline earlier in the day but has improved progressively. The patient's appetite has been borderline and she requires encouragement to eat. Low-grade hypoxia has been present requiring continuation of oxygen. Patient was unable to provide any history. Objective Vital signs: Temperature 96.1 F L 01/09/17 11:15 Pulse Rate 63 01/09/17 11:15 Respiratory Rate 16 01/09/17 11:15 Blood Pressure 121/68 01/09/17 11:15 Pulse Oximetry 94 01/09/17 11:28 Oxygen Delivery Method Nasal Cannula Oxygen Flow Rate 2 EXAM General-patient is drowsy and responded to questions only occasionally HEENT-mild conjunctival injection, sclera anicteric Lungs-respirations nonlabored with diminished airflow but clear breath sounds Cardiac-regular rhythm, S1 and S2 Abd-soft, nontender, diminished bowel sounds Ext-without edema Neuro-moving upper extremities spontaneously, dorsiflexion/plantarflexion intact bilaterally Psych-calm, cooperative - Weight: 56.8 kg Results - Labs CBC & Chem 7: 01/09/17 04:14 01/09/17 04:14 Assessment and Plan (1) Subcapital fracture of neck of right femur Current visit: Yes Status: Acute DVT Prophylaxis: SCD's Resuscitation Status: Do Not Resuscitate Assessment and Plan: Impression: Right femoral neck fracture-s/p cannulated screw fixation 01/08/17, Dr. Bentley Hypokalemia Dementia Hypertension GERD/history peptic ulcer disease Remote history CVA ORIF yesterday with cannulated screw fixation. 50% weightbearing RLE per orthopedic recommendations. On aspirin 325 twice a day for DVT prophylaxis in conjunction with SCDs. long term anticipated discharge. Reese catheter being removed today. Continue bowel regimen. Potassium replaced further IV. Blood pressure stable. No behavioral problems reported per nursing. Discussed with orthopedics, nursing, and case management. Sepsis Assessment - Evaluation Sepsis screening result: No Definite Risk Hospital Course Summary Disclaimer: The visit summary below is not to be considered part of the above Progress Note. Hospital Course: 01/08/17 10:09 Admitted with right femoral neck fracture after fall at [facility]. Dr. Bentley consulted, surgery planned for today. Mild hypokalemia-replaced IV. 01/09/17 15:27 Underwent surgical stabilization with cannulated screw fixation yesterday. 50% weightbearing RLE. long term anticipated. Reese catheter removed. Continues to require potassium supplementation. Blood pressure stable.
[2017-01-09] MEDS ORDERED: CALCIUM CARBONATE Chewable 750mg TABLET PO PRN (18:59)
[2017-01-09] MEDS: SUCRALFATE 1 GM TABLET PO SCH (21:00)
[2017-01-10] MEDS: NS 1,000 ML IV SCH ×3 (01:17→15:13)
[2017-01-10] MEDS: LORazepam 0.5 MG TABLET PO PRN (02:42)
[2017-01-10] MEDS: HYDROCODONE/APAP 7.5 MG/325 MG TABLET PO PRN (02:49)
[2017-01-10] MEDS: PANTOPRAZOLE 40 MG TABLET PO SCH (05:43)
--- NOTE | 2017-01-10 10:05 | Orthopedic Progress Note ---
Date: Subjective/Severity of Illness: Liza is pleasantly confused. She is sleeping comfortably. Nurse states she was restless last night, got Ativan. Orthopedic Objective PO Vital signs: Temperature 96.1 F L 01/10/17 03:13 Pulse Rate 66 01/10/17 03:28 Respiratory Rate 16 01/10/17 03:13 Blood Pressure 168/82 H 01/10/17 03:28 Pulse Oximetry 96 01/10/17 03:13 Oxygen Delivery Method Nasal Cannula Oxygen Flow Rate 1.5 Height and Weight: Height 5 ft 1 in Weight 125 lb 3.561 oz Body Mass Index 23.4 - Constitutional General Appearance: Present: looks stated age, other (sleeping) - Respiratory Exam Present: non-labored - Cardiovascular Exam Present: Regular Rate/Rhythm, pedal pulses intact - Abdominal Exam Present: soft. Absent: tenderness, distended - Extremities Exam Extremities: Present: pulses intact - Integumentary Exam Present: pink, warm, dry. Absent: lesions - Neurological Exam Present: intact to light touch, no deficits - Psychiatric Exam Present: alert, normal affect, attentive - Labs Result Diagrams: 01/10/17 04:08 01/10/17 04:08 Abnormal lab results 01/10/17 01/10/17 Range/Units 04:08 04:08 RBC 3.96 L (4.00-5.20) M/MM3 Hgb 11.9 L (12-16) GM/DL Neut % (Auto) 75.9 H (33-66) % Lymph % (Auto) 12.0 L (23-45) % Lymph # 0.9 L (1-4.8) T/MM3 Potassium 3.3 L (3.6-5) MEQ/L Chloride 109 H (98-107) MEQ/L Anion Gap 3 L (5-15) MEQ/L Creatinine 0.5 L (0.7-1.2) MG/DL Calcium 8.1 L (8.4-10.2) MG/DL H & H 01/08/17 01/09/17 01/10/17 Range/Units 04:38 04:14 04:08 Hgb 13.5 12.1 11.9 L (12-16) GM/DL Hct 41.8 37.7 37.3 (36-46) % Orthopedic Assessment and Plan (1) Subcapital fracture of neck of right femur Status: Acute Qualifiers: Encounter type: initial encounter Fracture type: closed Qualified Code(s) : S72.011A - Unspecified intracapsular fracture of right femur, initial encounter for closed fracture Assessment and Plan: PT/OT for ambulation: 50% weight bearing Lovenox 40mg SQ Q Day for DVT prevention. She needs a 30 day course from the date of surgery. continue pain and bowel management orthopaedically ready for Discharge when medical service agrees. F/U 2 weeks in clinic with [facility] Course Summary Disclaimer: The visit summary below is not to be considered part of the above Progress Note. Hospital Course: 01/08/17 10:09 Admitted with right femoral neck fracture after fall at [facility]. Dr. Bentley consulted, surgery planned for today. Mild hypokalemia-replaced IV. 01/09/17 15:27 Underwent surgical stabilization with cannulated screw fixation yesterday. 50% weightbearing RLE. jail anticipated. Reese catheter removed. Continues to require potassium supplementation. Blood pressure stable.
[2017-01-10] MEDS: LOSARTAN 100 MG TABLET PO SCH (10:55)
[2017-01-10] MEDS: LACTAID FAST TABLET PO SCH ×3 (10:55→17:50)
[2017-01-10] MEDS: ASPIRIN *EC* 81 MG TABLET PO SCH (10:55)
[2017-01-10] MEDS: ATENOLOL 25 MG TABLET PO SCH ×2 (10:55→21:16)
[2017-01-10] MEDS: ENOXAPARIN 40 MG/0.4 ML INJECTION SQ SCH (10:57)
[2017-01-10] MEDS: SENNA + DOCUSATE TABLET PO SCH ×2 (11:32→21:57)
[2017-01-10] MEDS: SODIUM FLUORIDE PO SCH (11:32)
[2017-01-10] MEDS: RANITIDINE 150 MG TABLET PO SCH ×2 (11:32→21:16)
[2017-01-10] MEDS: ESCITALOPRAM 10 MG TABLET PO SCH (11:33)
[2017-01-10] MEDS: MAGNESIUM OXIDE 400 MG TABLET PO SCH (11:33)
[2017-01-10] MEDS: CALCIUM CARBONATE 600 MG TABLET PO SCH ×2 (11:33→21:16)
[2017-01-10] MEDS: [UNRECOGNIZED DRUG - OTHER] PO SCH (11:33)
--- NOTE | 2017-01-10 14:55 | Progress Note ---
Subjective: Pt is in bed sleeping. Spoke with daughter, who stated was very sedated till yesterday - her meds were readjusted and then she was unable to sleep last night. Had HBP this AM, took her meds with apple sauce, still has HTN, mainly systolic. Pt denies having any significant pain. Objective Vital signs: Temperature 98.2 F 01/10/17 08:00 Pulse Rate 65 01/10/17 12:38 Respiratory Rate 16 01/10/17 08:00 Blood Pressure 177/82 H 01/10/17 12:38 Pulse Oximetry 98 01/10/17 08:00 Oxygen Delivery Method Nasal Cannula Oxygen Flow Rate 1.5 Rhythm: Normal Sinus Rhythm Weight: 58 kg - Constitutional Present: no acute distress - Routine HEENT Exam Head: Present: normocephalic, atraumatic Eye: Present: EOMI, PERRL - Routine Cardiovascular Exam Present: RRR - Routine Abdominal Exam Present: soft, non distended, non tender - Routine Extremities Exam Absent: cyanosis, clubbing, edema - Routine Neurological Exam Present: alert Responds to questions with yes/no - Routine Psychiatric Exam Present: unable to assess Comments: Not enough interaction to asses. Results - Labs CBC & Chem 7: 01/10/17 04:08 01/10/17 04:08 Assessment and Plan (1) Subcapital fracture of neck of right femur Current visit: Yes Status: Acute 01/08/17 00:22 she is nothing by mouth at this time. Dr. Bentley is aware of her situation , and plans operative repair in the morning. I see no medical contraindication to proceeding at his earliest convenience. We will be happy to follow along during her hospital course. Her home medications for essential hypertension, dyslipidemia, gastroesophageal reflux disease, and cerebrovascular disease are ordered to continue. Pain management, and DVT prophylaxis, will be per orthopedics recommendations unless otherwise requested. DVT Prophylaxis: SCD's GI Prophylaxis: Protonix Assessment and Plan: Impression: Summary - Liza is am 89 YO female that fell at [facility] and was found to have a right femoral neck fracture. She was operated on 01/08 (cannulated screw fixation - Dr. Bentley) and appears to be doing well. 1) S/P Hip fracture - as above. - Change Tylenol to Q4H regularly - APAP/Opiod combination PRN for pain not relieved by APAP alone. - DVT prevention with ASA (81mg/day) + SCD's and Lovenox. - PT evaluation - D/C To SNIF thursday, still too sedated. 2) Marginal oral intake. Watch for dehydration. - Creatinine is 0.5 today. 3) Hypertension with hypokalemia; still systolic BP is high. - Check aldosterone level. - On ARB Losartan 100 mg/day - On BB - HR in the 60 to 80 range. - If persistent may add diuretic (may need Aldactone due to low K). 4) Dementia with remote H.O CVA. 5) GERD/history peptic ulcer disease - Pt is on Protonix + ranitidine + Carafate. May be able to de-escalate treatment in the future. Sepsis Assessment - Evaluation Sepsis screening result: No Definite Risk Hospital Course Summary Disclaimer: The visit summary below is not to be considered part of the above Progress Note. Hospital Course: 01/08/17 10:09 Admitted with right femoral neck fracture after fall at [facility]. Dr. Bentley consulted, surgery planned for today. Mild hypokalemia-replaced IV. 01/09/17 15:27 Underwent surgical stabilization with cannulated screw fixation yesterday. 50% weightbearing RLE. retirement anticipated. Reese catheter removed. Continues to require potassium supplementation. Blood pressure stable.
[2017-01-10] MEDS: ACETAMINOPHEN 325 MG TABLET PO SCH ×3 (15:08→21:56)
[2017-01-10] MEDS: SUCRALFATE 1 GM TABLET PO SCH (21:16)
[2017-01-11] MEDS: ACETAMINOPHEN 325 MG TABLET PO SCH ×7 (02:38→21:45)
[2017-01-11] MEDS: NS 1,000 ML IV SCH ×3 (02:41→22:40)
[2017-01-11] MEDS: HYDROCODONE/APAP 7.5 MG/325 MG TABLET PO PRN ×2 (04:21→22:10)
[2017-01-11] MEDS: PANTOPRAZOLE 40 MG TABLET PO SCH (07:07)
[2017-01-11] MEDS: LACTAID FAST TABLET PO SCH ×3 (08:06→17:50)
[2017-01-11] MEDS: LOSARTAN 100 MG TABLET PO SCH (08:07)
[2017-01-11] MEDS: SENNA + DOCUSATE TABLET PO SCH ×2 (08:07→21:34)
[2017-01-11] MEDS: ESCITALOPRAM 10 MG TABLET PO SCH (08:07)
[2017-01-11] MEDS: ATENOLOL 25 MG TABLET PO SCH ×3 (08:07→21:39)
[2017-01-11] MEDS: RANITIDINE 150 MG TABLET PO SCH ×2 (08:07→21:33)
[2017-01-11] MEDS: ENOXAPARIN 40 MG/0.4 ML INJECTION SQ SCH (08:08)
[2017-01-11] MEDS: ASPIRIN *EC* 81 MG TABLET PO SCH (08:08)
[2017-01-11] MEDS: CALCIUM CARBONATE 600 MG TABLET PO SCH ×2 (08:08→21:39)
[2017-01-11] MEDS: MAGNESIUM OXIDE 400 MG TABLET PO SCH (08:08)
--- NOTE | 2017-01-11 09:13 | Progress Note ---
Subjective: Pt is arousable a bit sleepy. States is not in any pain. She is not eating well. Asked if she would participate in Rehab today - no answer. Objective Vital signs: Temperature 96.2 F L 01/11/17 07:00 Pulse Rate 73 01/11/17 07:00 Respiratory Rate 18 01/11/17 07:00 Blood Pressure 162/74 H 01/11/17 07:00 Pulse Oximetry 92 01/11/17 07:00 Oxygen Delivery Method Room Air Oxygen Flow Rate 1 Rhythm: Normal Sinus Rhythm Weight: 58 kg - Constitutional Present: no acute distress - Routine HEENT Exam Head: Present: normocephalic, atraumatic - Routine Respiratory Exam Present: CTA bilaterally - Routine Cardiovascular Exam Present: RRR - Routine Abdominal Exam Present: soft, non distended, non tender - Routine Extremities Exam Absent: cyanosis, clubbing, edema - Routine Neurological Exam Does not talk or interact enough Results - Labs CBC & Chem 7: 01/11/17 04:14 01/11/17 04:14 Assessment and Plan (1) Subcapital fracture of neck of right femur Current visit: Yes Status: Acute 01/08/17 00:22 she is nothing by mouth at this time. Dr. Bentley is aware of her situation , and plans operative repair in the morning. I see no medical contraindication to proceeding at his earliest convenience. We will be happy to follow along during her hospital course. Her home medications for essential hypertension, dyslipidemia, gastroesophageal reflux disease, and cerebrovascular disease are ordered to continue. Pain management, and DVT prophylaxis, will be per orthopedics recommendations unless otherwise requested. (2) Hypokalemia Current visit: Yes Status: Acute (3) Hypertension Current visit: Yes Status: Acute (4) Hypertension Current visit: Yes Status: Chronic 01/11/17 09:13 Chronic with acute worsening. DVT Prophylaxis: SCD's GI Prophylaxis: Protonix, Rantidine, other Assessment and Plan: Impression: Summary - Liza is am 89 YO female that fell at [facility] and was found to have a right femoral neck fracture. She was operated on 01/08 (cannulated screw fixation - Dr. Bentley) and appears to be doing well. She has remained very sleepy after surgery and her oral intake has been very poor. Remains on IVF to avoid dehydration. 1) S/P Hip fracture - as above. - Pain management - Tylenol Q4H + APAP/Opiod combination PRN for pain not relieved by APAP alone. - DVT prevention with ASA (81mg/day) + SCD's and Lovenox. - PT evaluation - D/C To SNIF thursday if sensorium is improved. 2) Marginal oral intake. On IVF to avoid dehydration. 3) Hypertension with hypokalemia; still systolic BP is high. K dropped again despite replacing it and pt being on Losartan. - Check aldosterone level (Pending). - Continue with ARB Losartan 100 mg/day - On BB - HR in the 60 to 80 range. - Will add Aldactone 25 mg/day - Will have to replace K orally today as well. - Mg is above 2.0 today. 4) Dementia with remote H.O CVA. - May have to repeat CT brain if pt remains sleepy today. Will discuss with her daughter. 5) GERD/history peptic ulcer disease - Pt is on Protonix + ranitidine + Carafate. May be able to de-escalate treatment in the future. Sepsis Assessment - Evaluation Sepsis screening result: No Definite Risk Hospital Course Summary Disclaimer: The visit summary below is not to be considered part of the above Progress Note. Hospital Course: 01/08/17 10:09 Admitted with right femoral neck fracture after fall at [facility]. Dr. Bentley consulted, surgery planned for today. Mild hypokalemia-replaced IV. 01/09/17 15:27 Underwent surgical stabilization with cannulated screw fixation yesterday. 50% weightbearing RLE. [facility] anticipated. Reese catheter removed. Continues to require potassium supplementation. Blood pressure stable.
[2017-01-11] MEDS: SODIUM FLUORIDE PO SCH (09:50)
[2017-01-11] MEDS: [UNRECOGNIZED DRUG - OTHER] PO SCH (09:50)
[2017-01-11] MEDS: SPIRONOLACTONE 25 MG TABLET PO SCH (10:24)
[2017-01-11] MEDS: POTASSIUM CHLORIDE 20 MEQ/15 ML ORAL LIQUID PO SCH ×2 (11:24→17:49)
[2017-01-11] MEDS: SUCRALFATE 1 GM TABLET PO SCH (21:33)
[2017-01-11] MEDS: MORPHINE SULFATE 4 MG SYRINGE IVP PRN (22:17)
[2017-01-12] MEDS: ACETAMINOPHEN 325 MG TABLET PO SCH ×5 (03:40→17:57)
[2017-01-12] MEDS: PANTOPRAZOLE 40 MG TABLET PO SCH (06:05)
[2017-01-12] MEDS: NS 1,000 ML IV SCH (06:12)
[2017-01-12] MEDS ORDERED: NS 100 ML ONE (08:23)
[2017-01-12] MEDS ORDERED: SALINE FLUSH 10ml SYRINGE ONE (08:23)
[2017-01-12] MEDS ORDERED: IOHEXOL 300mg/ml 50ml INJECTION ONE (08:23)
[2017-01-12] MEDS: SODIUM FLUORIDE PO SCH (09:13)
[2017-01-12] MEDS: ENOXAPARIN 40 MG/0.4 ML INJECTION SQ SCH (09:19)
[2017-01-12] MEDS: HYDROCODONE/APAP 7.5 MG/325 MG TABLET PO PRN (09:20)
[2017-01-12] MEDS: LACTAID FAST TABLET PO SCH ×3 (09:21→17:57)
[2017-01-12] MEDS: ASPIRIN *EC* 81 MG TABLET PO SCH (09:21)
[2017-01-12] MEDS: SENNA + DOCUSATE TABLET PO SCH ×2 (09:21→21:52)
[2017-01-12] MEDS: AMLODIPINE 5 MG TABLET PO SCH (09:21)
[2017-01-12] MEDS: LOSARTAN 100 MG TABLET PO SCH (09:21)
[2017-01-12] MEDS: SPIRONOLACTONE 25 MG TABLET PO SCH (09:22)
[2017-01-12] MEDS: ESCITALOPRAM 10 MG TABLET PO SCH (09:23)
[2017-01-12] MEDS: RANITIDINE 150 MG TABLET PO SCH ×2 (09:23→21:52)
[2017-01-12] MEDS: ATENOLOL 50 MG TABLET PO SCH (09:23)
[2017-01-12] MEDS: MAGNESIUM OXIDE 400 MG TABLET PO SCH (09:23)
[2017-01-12] MEDS: POTASSIUM CHLORIDE 20 MEQ/15 ML ORAL LIQUID PO SCH (09:24)
[2017-01-12] MEDS: CALCIUM CARBONATE 600 MG TABLET PO SCH ×2 (09:26→21:52)
--- NOTE | 2017-01-12 09:26 | XRay Report ---
Indication: Post Hip Surgery PROCEDURE: XR hip RT min 2V: Encounter: Subsequent Comparison: Pelvis and bilateral hip study, 01/07/2017 Findings: In the interim, there has been hip pinning on the right in regards to the subcapital femoral neck fracture. The threaded tips of the screws reside within the femoral head on both projections. No additional fractures. Ipsilateral pubic rami intact. Impression: In the interim, there is been right hip pinning. .
[2017-01-12] MEDS: [UNRECOGNIZED DRUG - OTHER] PO SCH (09:57)
[2017-01-12] MEDS: CHLORHEXIDINE 0.12% ORAL RINSE PO SCH (10:42)
--- NOTE | 2017-01-12 12:32 | Progress Note ---
Subjective: Pt is awake and conversant. Not following the 50% weight bearing ordered by ortho. BP very high - had an emergent CT brain - no new CVA. Was given Clonidine F/U BP 1 hr after - normal BP. Objective Vital signs: Temperature 97.7 F 01/12/17 07:00 Pulse Rate 69 01/12/17 07:00 Respiratory Rate 16 01/12/17 07:00 Blood Pressure 179/98 H 01/12/17 10:57 Pulse Oximetry 97 01/12/17 07:00 Oxygen Delivery Method Room Air Oxygen Flow Rate 1 Rhythm: Normal Sinus Rhythm Weight: 56.6 kg - Constitutional Present: no acute distress - Routine HEENT Exam Head: Present: normocephalic, atraumatic Eye: Present: EOMI, PERRL - Routine Respiratory Exam Present: CTA bilaterally - Routine Cardiovascular Exam Present: RRR - Routine Extremities Exam Absent: cyanosis, clubbing, edema - Routine Neurological Exam Present: alert Disoriented, able to be redirected. Results - Labs CBC & Chem 7: 01/12/17 13:03 01/12/17 13:03 Assessment and Plan (1) Subcapital fracture of neck of right femur Current visit: Yes Status: Acute 01/08/17 00:22 she is nothing by mouth at this time. Dr. Bentley is aware of her situation , and plans operative repair in the morning. I see no medical contraindication to proceeding at his earliest convenience. We will be happy to follow along during her hospital course. Her home medications for essential hypertension, dyslipidemia, gastroesophageal reflux disease, and cerebrovascular disease are ordered to continue. Pain management, and DVT prophylaxis, will be per orthopedics recommendations unless otherwise requested. (2) Hypokalemia Current visit: Yes Status: Acute (3) Hypertension Current visit: Yes Status: Acute (4) Hypertension Current visit: Yes Status: Chronic 01/11/17 09:13 Chronic with acute worsening. Assessment and Plan: Impression: Summary - Liza is am 89 YO female that fell at [facility] and was found to have a right femoral neck fracture. She was operated on 01/08 (cannulated screw fixation - Dr. Bentley) and appears to be doing well. She has remained very sleepy after surgery and her oral intake has been very poor. Pt was pretty sleepy over the week end and is now reported to be more awake and tolerating PO well. Her BP is very high today. 1) Hypertension with hypokalemia; much worse today. K dropped again despite replacing it and pt being on Losartan. - Pt had a repeat CT brain with and without contrast to R/O a new CVA. per my discussion with radiology - no CVA is seen no hemorrhage. - Added Clonidine 0.1 mg x 1 dose - will check BP in 1 hr and reasses. - Check aldosterone level (Pending). - Continue with ARB Losartan 100 mg/day - Norvasc added at 5mg/day - On BB - HR in the 60 to 80 range. - Aldactone 25 mg/day added (01/11) 2) S/P Hip fracture - as above. - Pain management - Tylenol Q4H + APAP/Opiod combination PRN for pain not relieved by APAP alone. - DVT prevention with ASA (81mg/day) + SCD's and Lovenox. - PT evaluation - D/C To SNIF thursday if sensorium is improved. 3) Marginal oral intake. On IVF to avoid dehydration. 4) Dementia with remote H.O CVA. - May have to repeat CT brain if pt remains sleepy today. Will discuss with her daughter. 5) GERD/history peptic ulcer disease - Pt is on Protonix + ranitidine + Carafate. May be able to de-escalate treatment in the future. Sepsis Assessment - Evaluation Sepsis screening result: No Definite Risk Hospital Course Summary Disclaimer: The visit summary below is not to be considered part of the above Progress Note. Hospital Course: 01/08/17 10:09 Admitted with right femoral neck fracture after fall at [facility]. Dr. Bentley consulted, surgery planned for today. Mild hypokalemia-replaced IV. 01/09/17 15:27 Underwent surgical stabilization with cannulated screw fixation yesterday. 50% weightbearing RLE. shelter anticipated. Reese catheter removed. Continues to require potassium supplementation. Blood pressure stable.
--- NOTE | 2017-01-12 13:48 | Orthopedic Progress Note ---
Date: Subjective/Severity of Illness: Liza is pleasantly confused. She states she is sleepy, but awakens easily. She denies hip pain, chest pain, shortness of breath or calf pain. Hospitalist is working on hypokalemia. Nursing called this AM to report she is none compliant with weight bearing status secondary to dementia. Repeat hip x-rays show minimal fracture settling, with hardware in good position. New orders for NON weight bearing were provided. Orthopedic Objective PO Vital signs: Temperature 97.7 F 01/12/17 07:00 Pulse Rate 69 01/12/17 07:00 Respiratory Rate 16 01/12/17 07:00 Blood Pressure 145/82 H 01/12/17 12:50 Pulse Oximetry 97 01/12/17 07:00 Oxygen Delivery Method Room Air Oxygen Flow Rate 1 Height and Weight: Height 5 ft 1 in Weight 124 lb 12.506 oz Body Mass Index 23.4 - Constitutional General Appearance: Present: alert, looks stated age, other (sleeping) - Respiratory Exam Present: non-labored - Cardiovascular Exam Present: Regular Rate/Rhythm, pedal pulses intact - Abdominal Exam Present: soft. Absent: tenderness, distended - Extremities Exam Extremities: Present: pulses intact - Integumentary Exam Present: pink, warm, dry. Absent: lesions - Neurological Exam Present: intact to light touch, no deficits - Psychiatric Exam Present: alert, normal affect, attentive - Labs Result Diagrams: 01/12/17 13:03 01/12/17 13:03 Abnormal lab results 01/12/17 01/12/17 Range/Units 13:03 13:03 Neut % (Auto) 71.3 H (33-66) % Lymph % (Auto) 16.7 L (23-45) % Potassium 3.4 L (3.6-5) MEQ/L Chloride 110 H (98-107) MEQ/L Creatinine 0.4 L (0.7-1.2) MG/DL Glucose 117 H (65-110) MG/DL AST 120 H D (14-36) U/L ALT 74 H (9-52) U/L Alkaline Phosphatase 138 H (38-126) U/L Total Protein 5.6 L (6.3-8.2) G/DL Albumin 3.4 L (3.5-5.0) G/DL Globulin 2.2 L (2.4-3.6) G/DL H & H 01/08/17 01/09/17 01/10/17 Range/Units 04:38 04:14 04:08 Hgb 13.5 12.1 11.9 L (12-16) GM/DL Hct 41.8 37.7 37.3 (36-46) % 01/11/17 01/12/17 Range/Units 04:14 13:03 Hgb 12.8 12.0 (12-16) GM/DL Hct 39.3 37.0 (36-46) % Orthopedic Assessment and Plan (1) Subcapital fracture of neck of right femur Status: Acute Qualifiers: Encounter type: initial encounter Fracture type: closed Qualified Code(s) : S72.011A - Unspecified intracapsular fracture of right femur, initial encounter for closed fracture Assessment and Plan: Change weight bearing to NON weight bearing. Patient will need a 30 day course of Lovenox from date of surgery continue medical management Follow up with Liu Meza at 2 weeks post op ([phone]) Hospital Course Summary Disclaimer: The visit summary below is not to be considered part of the above Progress Note. Hospital Course: 01/08/17 10:09 Admitted with right femoral neck fracture after fall at [facility]. Dr. Bentley consulted, surgery planned for today. Mild hypokalemia-replaced IV. 01/09/17 15:27 Underwent surgical stabilization with cannulated screw fixation yesterday. 50% weightbearing RLE. care home anticipated. Reese catheter removed. Continues to require potassium supplementation. Blood pressure stable.
--- NOTE | 2017-01-12 17:00 | CT Scan Report ---
Indication: R/O new CVA PROCEDURE: CT head/brain wo/w con: Encounter: Initial Comparison: None Technique: Axial pre and postcontrast images of the brain utilizing radiation dose reduction technique; 50 cc of Omnipaque 350 was utilized. Findings: There is cerebral atrophy and cerebellar atrophy as well. No mass, hemorrhage, or acute infarction. Chronic microvascular ischemia of the deep white matter and basal ganglia noted. No abnormal enhancement identified. Visualized paranasal sinuses are grossly clear with slight mucosal thickening dependently in the sphenoid sinus. Findings: Impression: 1. Cerebral and cerebellar atrophy. 2. Chronic microvascular ischemia. 3. Negative for cerebral mass, acute infarction, or hemorrhage. .
[2017-01-12] MEDS: SUCRALFATE 1 GM TABLET PO SCH (21:52)
[2017-01-13] MEDS: ACETAMINOPHEN 325 MG TABLET PO SCH ×6 (00:11→15:23)
[2017-01-13] MEDS: PANTOPRAZOLE 40 MG TABLET PO SCH (06:42)
[2017-01-13 07:59] VITALS: RESP 16; TEMP 97.8
[2017-01-13] MEDS: LACTAID FAST TABLET PO SCH ×2 (08:29→11:24)
[2017-01-13] MEDS: SPIRONOLACTONE 25 MG TABLET PO SCH (08:30)
[2017-01-13] MEDS: ESCITALOPRAM 10 MG TABLET PO SCH (08:31)
[2017-01-13] MEDS: LOSARTAN 100 MG TABLET PO SCH (08:31)
[2017-01-13] MEDS: ASPIRIN *EC* 81 MG TABLET PO SCH (08:31)
[2017-01-13] MEDS: AMLODIPINE 5 MG TABLET PO SCH (08:32)
[2017-01-13] MEDS: SENNA + DOCUSATE TABLET PO SCH (08:32)
[2017-01-13] MEDS: MAGNESIUM OXIDE 400 MG TABLET PO SCH (08:32)
[2017-01-13] MEDS: ATENOLOL 50 MG TABLET PO SCH (08:33)
[2017-01-13] MEDS: ENOXAPARIN 40 MG/0.4 ML INJECTION SQ SCH (08:33)
[2017-01-13] MEDS: RANITIDINE 150 MG TABLET PO SCH (08:33)
[2017-01-13] MEDS: CALCIUM CARBONATE 600 MG TABLET PO SCH (08:34)
[2017-01-13] MEDS: SODIUM FLUORIDE PO SCH (08:58)
[2017-01-13] MEDS: CHLORHEXIDINE 0.12% ORAL RINSE PO SCH (10:08)
--- NOTE | 2017-01-13 11:27 | Progress Note ---
Subjective: Pt is in the chair sitting up very comfortable. She is verbal. A bit confused. Daughter at the bedside. BP is better. Objective Vital signs: Temperature 97.8 F 01/13/17 07:51 Pulse Rate 63 01/13/17 07:51 Respiratory Rate 16 01/13/17 07:51 Blood Pressure 153/79 H 01/13/17 07:51 Pulse Oximetry 96 01/13/17 07:51 Oxygen Delivery Method Room Air Oxygen Flow Rate 1 Rhythm: Normal Sinus Rhythm Weight: 56.6 kg - Constitutional Present: no acute distress, well nourished, well developed - Routine HEENT Exam Head: Present: normocephalic, atraumatic Eye: Present: EOMI, PERRL - Routine Respiratory Exam Present: CTA bilaterally - Routine Cardiovascular Exam Present: RRR, no murmur - Routine Abdominal Exam Present: soft, non tender, distended - Routine Extremities Exam Absent: cyanosis, clubbing, edema - Routine Neurological Exam Present: alert Disoriented - Routine Psychiatric Exam Present: cooperative Comments: Disoriented - C/W dementia Results - Labs CBC & Chem 7: 01/13/17 03:59 01/13/17 03:59 Assessment and Plan (1) Subcapital fracture of neck of right femur Current visit: Yes Status: Acute 01/08/17 00:22 she is nothing by mouth at this time. Dr. Bentley is aware of her situation , and plans operative repair in the morning. I see no medical contraindication to proceeding at his earliest convenience. We will be happy to follow along during her hospital course. Her home medications for essential hypertension, dyslipidemia, gastroesophageal reflux disease, and cerebrovascular disease are ordered to continue. Pain management, and DVT prophylaxis, will be per orthopedics recommendations unless otherwise requested. (2) Hypokalemia Current visit: Yes Status: Acute 01/13/17 12:15 With HTN - Aldosterone level ordered. (3) Hypertension Current visit: Yes Status: Chronic 01/11/17 09:13 Chronic with acute worsening. DVT Prophylaxis: Lovenox GI Prophylaxis: Protonix, Rantidine, other Assessment and Plan: Summary - Liza is a 89 YO female that fell at her [facility] and was found to have a right femoral neck fracture. She was operated on 01/08 (cannulated screw fixation - Dr. Bentley) and appears to be doing well. She was very sleepy after surgery over jan weekend and had poor oral intake, necessitating IV hydration. Yesterday she was more awake and had very high BP, a CT brain did not show a new CVA - She was given new meds for BP - Clonidine 0.1 BID and Norvasc was also added. Today BP is better, will observe and if BP continues to be stable, will send to [facility] this PM at 5pm. Will have to check RUQ U/S prior to D/C due to increasing LFT's & Bilirrubin. She does not have a typical scar for a previous cholecystectomy and is demented so I can not say she's had this surgery done. DIAGNOSIS - 1) Hypertension with hypokalemia; aldosterone level pending. Hypokalemia persists despite Aldactone however LFT's are increasing and if U/S is negative will have to hold aldactone. - Pt had a repeat CT brain on 01/12 - with and without contrast to R/O a new CVA , due to the acute raise in her BP. No new CVA seen. - We then added Clonidine 0.1 mg PO BID (01/12) and Norvasc. - Continue with Losartan 100 mg/day - Cotinue with Atenolol - HR in the 60's 2) S/P Hip fracture - as above. - Pain management - Tylenol Q4H + APAP/Opiod combination PRN for pain not relieved by APAP alone. - DVT prevention with ASA (81mg/day) + SCD's and Lovenox. - PT evaluation - D/C To [facility] thursday if sensorium is improved. 3) Increasing LFT's - with hyperbilirrubinemia - will check a RUQ. - Stopped Aldactone due to reports of LIVER TOXICITY. If blockade of aldosterone needed still - may use Eplerenone. - Aldosterone level ordered - PENDING. 4) Dementia with remote H.O CVA. - May have to repeat CT brain if pt remains sleepy today. Will discuss with her daughter. 5) GERD/history peptic ulcer disease - Pt is on Protonix + ranitidine + Carafate. May be able to de-escalate treatment in the future. PREVENTION WILL NEED 30 DAYS OF LOVENOX PER ORTHO CONTINUE WITH AGGRESIVE TX FOR GASTRITIS/GERD. Sepsis Assessment - Evaluation Sepsis screening result: No Definite Risk Hospital Course Summary Disclaimer: The visit summary below is not to be considered part of the above Progress Note. Hospital Course: 01/08/17 10:09 Admitted with right femoral neck fracture after fall at [facility]. Dr. Bentley consulted, surgery planned for today. Mild hypokalemia-replaced IV. 01/09/17 15:27 Underwent surgical stabilization with cannulated screw fixation yesterday. 50% weightbearing RLE. penitentiary anticipated. Reese catheter removed. Continues to require potassium supplementation. Blood pressure stable.
[2017-01-13 11:58] VITALS: PULSE 59; O2SAT 98
--- NOTE | 2017-01-13 15:54 | Ultrasound Report ---
Indication: Increasing LFT's PROCEDURE: US abdomen limited: Encounter: Initial Comparison: None Technique: Grayscale and color Doppler sonographic imaging of the right upper quadrant of the abdomen was performed. Findings: Hepatic parenchyma is homogeneous without evidence for focal mass. The gallbladder is normal. There is no wall thickening, pericholecystic fluid, sonographic Meyers's sign or cholelithiasis. Both the intra and extrahepatic biliary system are of normal caliber with the common duct measuring 5 mm in dimension. Visualized portions of the head and body of the pancreas are unremarkable. The right kidney is present without collecting system dilatation. The right kidney measures 8.5 cm in length. Impression: Normal right upper quadrant sonogram. .
--- NOTE | 2017-01-13 16:16 | Discharge Instructions ---
Discharge Plan - Med Rec/Dispo Referrals/Follow Up: Giovany Bentley MD [Physician] - [place] Instructions: [facility] [place], [facility] [place] Postop [place]ructions Prescriptions: New Hydrocodone/APAP 7.5/325 [[place] 7.5/325] 1 tab PO Q6H PRN #40 tablet PRN Reason: Pain Acetaminophen [Tylenol] 650 mg PO Q4H tablet Atenolol [Tenormin] 50 mg PO DAILY tablet Enoxaparin Sodium [Lovenox] 40 mg SQ DAILY #30 syringe Milk of Magnesia [Mom] 30 ml PO DAILY PRN udc PRN Reason: Constipation Senna + Docusate [Senna Plus Tablet] 2 tab PO BID tablet Sucralfate [Carafate] 1 gm PO HS tablet Amlodipine [Norvasc] 5 mg PO DAILY tablet Losartan [Cozaar] 100 mg PO DAILY tablet Continue Cyanocobalamin (B-12) [Vit. B-12] 1,000 mcg SQ MONTHLY #0 Magnesium Oxide [Magnesium] 400 mg PO BID #0 Aspirin [Aspir 81] 81 mg PO DAILY #0 Escitalopram Oxalate [Lexapro] 5 mg PO DAILY Lactase [Lactaid] 3,000 unit PO TID Pantoprazole Sodium 40 mg PO BID #0 raNITIdine HCl [Zantac] 150 mg PO BID #0 Chlorhexidine Gluconate [Periogard] 0.5 oz PO SS #0 Calcium Carbonate [Calcium] 600 mg PO BID #0 Sodium Fluoride [Denta 5000 Plus] 1 applic MT DAILY #0 Discontinued LORazepam [Ativan] 0.5 mg PO Q6H PRN #0 PRN Reason: ANXIETY Atenolol [Tenormin] 25 mg PO BID No Action Losartan [Cozaar] 100 mg PO DAILY Sucralfate [Carafate] 1 gm PO HS - Disposition 03 To SNU Not [facility] [place])
--- NOTE | 2017-01-13 16:22 | Discharge Summary ---
Discharge Information Date of admission: 01/07/17 23:24 Anticipated date of discharge: 01/13/17 Attending Physician: Myrna Retana MD Primary care physician: Leah Ríos MD Consults: 01/08/17 02:09 W[facility] Consult [CONS] Routine 01/08/17 11:30 Physician Consult [CONS] Routine Consulting Provider: Alexa Granger Reason For Exam: CONT CARE Ordering Provider has Notified Manager Instrumentation: Yes - Discharge Diagnosis Discharge Diagnosis: Summary - Liza is a 89 YO female that fell at her [facility] and was found to have a right femoral neck fracture. She was operated on 01/08 (cannulated screw fixation - Dr. Bentley) and appears to be doing well. She was very sleepy after surgery over jan weekend and had poor oral intake, necessitating IV hydration. Yesterday she was more awake and had very high BP, a CT brain did not show a new CVA - She was given new meds for BP - Clonidine 0.1 BID and Norvasc was also added. Today BP is better, will observe and if BP continues to be stable, will send to [facility] this PM at 5pm. Will have to check RUQ U/S prior to D/C due to increasing LFT's & Bilirrubin. She does not have a typical scar for a previous cholecystectomy and is demented so I can not say she's had this surgery done. DIAGNOSIS - 1) Hypertension with hypokalemia; aldosterone level pending. Hypokalemia persists despite Aldactone use. Since pt had elevated LFT's that were temporaly associated with the introduction of aldactone and negative U/S for cholecystitis - or obstruction - will have to hold Aldactone. - Pt had a repeat CT brain on 01/12 - with and without contrast to R/O a new CVA , due to the acute raise in her BP. No new CVA seen. - We then added Clonidine 0.1 mg PO BID (01/12) and Norvasc. - Continue with Losartan 100 mg/day - Cotinue with Atenolol - HR in the 60's - Watch serial K levels, replace as needed. - If Aldactone is considered - make sure LFT's are normal or trending down before it is re-introduced and check LFT's periodically after it is initiated. If Eplerenone is considered also check LFT's and monitor K serially to avoid hyperkalemia. 2) S/P Hip fracture - as above. - Pain management - Tylenol Q4H + APAP/Opiod combination PRN for pain not relieved by APAP alone. - DVT prevention with ASA (81mg/day) + Lovenox. - D/C to [facility] now. 3) Increasing LFT's - with hyperbilirrubinemia - RUQ is negative. - Please check LFT's in 48 hrs and if abnormal call me at [facility] [place] - my extension is [phone]. - Stopped Aldactone due to reports of LIVER TOXICITY. - Aldosterone level ordered - PENDING. 4) Dementia with remote H.O CVA. - May have to repeat CT brain if pt remains sleepy today. Will discuss with her daughter. 5) GERD/history peptic ulcer disease - Pt is on Protonix + ranitidine + Carafate. May be able to de-escalate treatment in the future. PREVENTION WILL NEED 30 DAYS OF LOVENOX PER ORTHO CONTINUE WITH AGGRESIVE TX FOR GASTRITIS/GERD. - Procedures Procedures: Surgical correction of hip fracture. - Laboratory Labs: 01/13/17 03:59 01/13/17 03:59 - Radiology Radiology: 01/07/2017 Encounter: Initial Comparison: None Findings: Slightly impacted fracture of the subcapital right femoral neck. No additional acute fracture or dislocation seen. Degenerative change in the lower lumbar spine. Bony demineralization limiting detection of nondisplaced fractures. Impression: Closed posttraumatic right femoral neck fracture. F/U 01/09/2016 PROCEDURE: RF hip RT 2 view: Encounter: Initial Comparison: Pelvis radiographs from yesterday Findings: Four fluoroscopic spot images are submitted for interpretation. Images show internal fixation of the right femoral neck fracture with placement of three partially threaded cannulated screws across the femoral head and neck. Stable alignment. Impression: Fluoroscopy as above. History of Present Illness HPI: This is a pleasantly demented 89-year-old female patient who was [facility] the [facility] this afternoon after she sustained an unwitnessed but presumed mechanical fall, fracturing her right hip. There was no reported syncope or prodrome. No reported chest pain. She apparently was ambulating back from the bathroom when she fell. She had had no recent illnesses. [facility] for cognitive impairment due to dementia with significant short-term memory loss. She is admitted for further evaluation and comanagement with orthopedic surgery, with plans for surgical repair tomorrow morning. Objective Vital signs: Temperature 97.8 F 01/13/17 07:51 Pulse Rate 59 L 01/13/17 11:57 Respiratory Rate 16 01/13/17 11:57 Blood Pressure 98/57 01/13/17 11:57 Pulse Oximetry 98 01/13/17 11:57 Oxygen Delivery Method Room Air Oxygen Flow Rate 1 Rhythm: Normal Sinus Rhythm Weight: 56.6 kg - Constitutional Present: no acute distress - Routine HEENT Exam Head: Present: normocephalic, atraumatic Eye: Present: EOMI, PERRL - Routine Respiratory Exam Present: CTA bilaterally - Routine Cardiovascular Exam Present: RRR, S1, S2 - Routine Extremities Exam Absent: cyanosis, clubbing, edema - Routine Neurological Exam Present: alert - Routine Psychiatric Exam Present: unable to assess Comments: Cofused does not appear to be hallucinating, not agitated. Hospital Course This is a general summary of the patient's hospital course. For more details refer to the complete medical record. Hospital course: 01/08/17 10:09 Admitted with right femoral neck fracture after fall at [facility]. Dr. Bentley consulted, surgery planned for today. Mild hypokalemia-replaced IV. 01/09/17 15:27 Underwent surgical stabilization with cannulated screw fixation yesterday. 50% weightbearing RLE. alf anticipated. Reese catheter removed. Continues to require potassium supplementation. Blood pressure stable. Time spent with patient: greater than 35 minutes DVT Prophylaxis: Lovenox GI Prophylaxis: Protonix, Rantidine Discharge Plan - Med Rec/Dispo Referrals/Follow Up: Giovany Bentley MD [Physician] - [place] Instructions: [facility] [place] Ortho Fracture Instructions, [facility] [place] Ortho Postop Instructions Prescriptions: New Hydrocodone/APAP 7.5/325 [[place] 7.5/325] 1 tab PO Q6H PRN #40 tablet PRN Reason: Pain Acetaminophen [Tylenol] 650 mg PO Q4H tablet Atenolol [Tenormin] 50 mg PO DAILY tablet Enoxaparin Sodium [Lovenox] 40 mg SQ DAILY #30 syringe Milk of Magnesia [Mom] 30 ml PO DAILY PRN udc PRN Reason: Constipation Senna + Docusate [Senna Plus Tablet] 2 tab PO BID tablet Sucralfate [Carafate] 1 gm PO HS tablet Amlodipine [Norvasc] 5 mg PO DAILY tablet Losartan [Cozaar] 100 mg PO DAILY tablet Continue Cyanocobalamin (B-12) [Vit. B-12] 1,000 mcg SQ MONTHLY #0 Magnesium Oxide [Magnesium] 400 mg PO BID #0 Aspirin [Aspir 81] 81 mg PO DAILY #0 Escitalopram Oxalate [Lexapro] 5 mg PO DAILY Lactase [Lactaid] 3,000 unit PO TID Pantoprazole Sodium 40 mg PO BID #0 raNITIdine HCl [Zantac] 150 mg PO BID #0 Chlorhexidine Gluconate [Periogard] 0.5 oz PO SS #0 Calcium Carbonate [Calcium] 600 mg PO BID #0 Sodium Fluoride [Denta 5000 Plus] 1 applic MT DAILY #0 Discontinued LORazepam [Ativan] 0.5 mg PO Q6H PRN #0 PRN Reason: ANXIETY Atenolol [Tenormin] 25 mg PO BID No Action Losartan [Cozaar] 100 mg PO DAILY Sucralfate [Carafate] 1 gm PO HS - Disposition 03 To SNU Not [facility] ([facility])
[2017-01-13 16:39] VITALS: BP 136/74
--- NOTE | 2017-01-13 16:49 | Extended Care Facility Orders ---
Admission Orders Admit to:: Longterm Allergies/Adverse Reactions: Allergies No Known Allergies Allergy (Unknown, Verified 01/07/17 20:02) Admitting Diagnosis: Hip Fracture Admitting Physician: Myrna Retana MD Attending Physician: Myrna Retana MD Code Status: Do Not Resuscitate Anticiapted Length of Stay: 30 days or less Rehab Potential: fair Rehab Prognosis: fair Diet: REGULAR DIET WITH GROUND MEAT - AND LOW SODIUM. Wound/Incision Care: N/A May use Facility Protocol or Standing Orders: Yes May have flu vaccine: Yes Evaluations/Treatment: Speech, PT, OT Longterm Certification: I certify that SNF services are required to be given on an Inpatient basis because of the patients need for residential care on a continuing basis for the condition(s) for which he/she received inpatient hospital services prior to his/her transfer to the SNF. SNF inpatient care is necessary for the following reasons Indication for Longterm: Other (Strengthening and conditioning ) - Additional Information Referrals: Giovany Bentley MD [Physician] - Additional Orders: Check LFT's in the AM as pt LFT were increasing - probably a drug reaction. Keep an eye on her K level as well as deemed necessary
[2017-01-14] MEDS ORDERED: SPIRONOLACTONE 50 MG TABLET PO SCH (09:00)
== END 2017-01-13 17:08 | DRG 482 ==
LOC: ED 19:39 → SRG 22:47
PROVIDERS: ADMIT Internal Medicine; ATTEND Internal Medicine